=== PATIENT | male | born 1990 | race Two or more races ===

== ENCOUNTER 2020-08-24 12:30 | Emergency (ER) | payer MEDICAID ==
[~2020-08-24] VITALS: Ht 177.8 cm; Wt 75.7 kg
--- NOTE | 2020-08-24 13:10 | NUR ---
PT SELF PRESENTS TO ED. AMBULATORY C/O DEPRESSION X 2 WEEKS. PT DENIES SI/HI. HOMELESS. PT IS AAOX3, VSS. AWAITING MD CARMONA.
--- NOTE | 2020-08-24 13:11 | NUR ---
WORKSHOP MANAGER AT BEDSIDE FOR BLOOD DRAW.
[2020-08-24 13:15] LABS: EOSINOPHILS % (AUTO) 2.3 % (0.0-6.0); HEMATOCRIT 44 % (39-51); LYMPHOCYTES # (AUTO) 0.9 /CMM (0.8-4.8); LYMPHOCYTES % (AUTO) 20.7 % (20.0-44.0); MEAN CORPUSCULAR HGB CONC 34 g/dl (31.0-36.0); MEAN CORPUSCULAR VOLUME 93 fL (80-96); MONOCYTES # (AUTO) 0.4 /CMM (0.1-1.30); MONOCYTES % (AUTO) 9.6 % (2.0-12.0); NEUTROPHILS # (AUTO) 2.8 /CMM (1.8-8.9); NEUTROPHILS % (AUTO) 66.4 % (43.0-81.0); PLATELET COUNT (AUTO) 215 /CMM (150-450); RED BLOOD CELL COUNT(AUTO) 4.72 MIL/uL (4.5-6.0); WHITE BLOOD COUNT (AUTO) 4.2 K/uL (4.3-11.0)
--- NOTE | 2020-08-24 13:15 | NUR ---
DR MIGUEL AT BEDSIDE FOR EVAL.
[2020-08-24 13:28] LABS: ALANINE AMINOTRANSFERASE 25 U/L (12-78); ALBUMIN 4.1 g/dL (3.4-5.0); ALCOHOL, BLOOD < 3 mg/dL (0-0); ALKALINE PHOSPHATASE 56 U/L (46-116); ASPARTATE AMINOTRANSFERASE 13 U/L (15-37); BILIRUBIN,DIRECT 0.1 mg/dL (0.0-0.2); BILIRUBIN,TOTAL 0.8 mg/dL (0.2-1.0); CARBON DIOXIDE 25 mmol/L (21-32); CHLORIDE 103 mmol/L (98-107); GLUCOSE 110 mg/dL (74-106); SODIUM SERUM 138 mmol/L (136-145); TOTAL PROTEIN, SERUM 7.7 g/dL (6.4-8.2); UREA NITROGEN, BLOOD 18 mg/dL (7-18)
[2020-08-24 13:45] LABS: ACETAMINOPHEN 0 ug/ml (10-30)
--- NOTE | 2020-08-24 13:50 | NUR ---
Jose Antonio jason in [facility] - 08/24/20 at 1528 by MARTHA CALLED TRANSPORT ETA IS [address]
[2020-08-24 15:22] LABS: BILIRUBIN,URINE Negative (NEGATIVE); COLOR,URINE YELLOW (YELLOW); LEUKOCYTE ESTERASE ,URINE Negative (NEGATIVE); NITRITE, URINE Negative (NEGATIVE); PH,URINE 5.5 (5.0-8.0); PROTEIN,URINE Negative (NEGATIVE); UGLUCOSE Negative (NEGATIVE); UROBILINOGEN,URINE 0.2 EU/dL (0.2)
--- NOTE | 2020-08-24 15:28 | NUR ---
FAXED CLINICALS AND FACESHEET TO [facility]
--- NOTE | 2020-08-24 18:29 | NUR ---
FAXED COVID AND URINALYSIS TO [facility].
--- NOTE | 2020-08-24 20:50 | NUR ---
CURTIS COURTNEY IS PSYCH DOCTOR, [facility] COURTNEY IS INTERNAL MEDICINE, CALL FOR REPORT [phone] UNIT #2
--- NOTE | 2020-08-24 21:39 | NUR ---
CALLED [facility] FOR TRANSPORTATION. REFERENCE NUMBER [id number]
--- NOTE | 2020-08-24 23:40 | NUR ---
CALLED [facility], STILL NO AMBULANCE AVAILABLE AT THIS TIME
--- NOTE | 2020-08-25 00:40 | NUR ---
REPORT GIVEN TO SHILOH MONTES FOR [facility]
[2020-08-25 00:57] VITALS: BP 153/85
--- NOTE | 2020-08-25 00:57 | NUR ---
RE[facility] GIV[facility] TO [facility] GLEN
== END 2020-08-25 00:58 ==
LOC: ER 12:34
DX: R45.851 Suicidal ideations (principal); Z59.0 Homelessness; F32.9 Major depressive disorder, single episode, unspecified; F41.9 Anxiety disorder, unspecified; Z20.828 Contact with and (suspected) exposure to other viral communicable diseases
CPT/HCPCS: 36415; 80048; 80076; 80299; 80307; 80320; 81003; 85025; 87426; 99285; C9803; G0480